=== PATIENT | male | born 1965 | race Caucasian/White ===

== ENCOUNTER 2018-12-16 02:51 | Emergency (ER) | payer OTHER ==
[~2018-12-16] VITALS: Ht 172.7 cm; Wt 102.1 kg
[2018-12-16] MEDS ORDERED: TOPROL XL25 MG PO (03:04)
[2018-12-16] MEDS ORDERED: ESCITALOPRAM OX10 MG PO (03:05)
[2018-12-16 04:35] LABS: ABSOLUTE NEUTROPHILS 3.1 thou/uL (1.4-8.2); BASOPHILS 0.9 % (0.0-2.0); EOSINOPHILS 5.1 % (0.0-3.0); HEMATOCRIT 45.7 % (42.0-52.0); HEMOGLOBIN 15.8 gm/dL (14.0-18.0); LYMPHOCYTES 39.1 % (24.0-44.0); MCH 29.5 pg (26.0-34.0); MCHC 34.6 g/dL (28.0-37.0); MCV 85.2 fL (80.0-100.0); MONOCYTES 8.5 % (1.0-8.0); PLATELET COUNT 220 thou/uL (150-400); POLYS 46.4 % (36.0-66.0); RBC 5.36 mil/uL (4.50-6.00); RDW 12.9 % (10.5-14.5); WBC 6.7 thou/uL (4.0-11.0)
[2018-12-16 04:36] LABS: ANION GAP 10 mmol/L (7-16); BUN 18 mg/dL (7-18); CALCIUM 8.9 mg/dL (8.5-10.1); CHLORIDE 104 mmol/L (98-107); CO2 27 mmol/L (21-32); CREATININE 0.9 mg/dL (0.7-1.3); GLUCOSE 101 mg/dL (74-106); POTASSIUM 3.9 mmol/L (3.5-5.1); SODIUM 141 mmol/L (136-145)
[2018-12-16 04:45] LABS: MAGNESIUM 2.3 mg/dL (1.8-2.4); TROPONIN-I <0.06 ng/mL (<0.06)
[2018-12-16 06:26] VITALS: BP 148/97
--- NOTE | 2018-12-18 22:25 | EKG ---
[address] [place] [address] ELECTROCARDIOGRAM REPORT Name: LAY CHIRINOS Room #: DEP Diogenes#: [id number] ������������������ Admission: 12/16/18 ������������������ Attend Phys: Discharge: 12/16/18 ������������������ Date of : 67 Report #: [id number] ����������������������������������������������������������������� [id number] THIS REPORT FOR: //name// [facility] ED Test Date: 2018-12-16 Test Time: 04:35:28 Pat Name: LAY CHIRINOS Department: Room: Gender: M Digital Pre Press Operator: cooper : 1965 Requested By: Melisa Lockhart Order Number: [id number] MD: Mando Avila Measurements Intervals [place] Rate: 53 P: 7 WI: 165 QRS: -6 QRSD: 111 T: -6 QT: 436 QTc: 410 Interpretive Statements Sinus rhythm Borderline T abnormalities, inferior leads ST elev, probable normal early repol pattern Compared to ECG 12/05/2013 13:36:30 T-wave abnormality now present ST (T wave) deviation now present Electronically Signed On 12-18-2018 22:25:12 CDT by Mando Avila [email or web address] ��������������������������������������������� <ELECTRONICALLY SIGNED> ���������������������������������������� By: Mando Avila MD ��������������������������������������������� 12/18/18 2225 0435 0435 Mando Avila MD /EPI
== END 2018-12-16 06:26 | disposition home or self-care (01) ==
LOC: ER 02:51
PROVIDERS: Emergency Medicine
DX: I10 Essential (primary) hypertension (principal)

== ENCOUNTER 2018-12-27 19:14 | Emergency (ER) | payer OTHER ==
[~2018-12-27] VITALS: Ht 172.7 cm; Wt 102.1 kg
[~2018-12-27 19:14] MED LIST: ESCITALOPRAM OX10 MG PO; TOPROL XL25 MG PO
[2018-12-27 21:30] VITALS: BP 143/87
== END 2018-12-27 21:30 | disposition home or self-care (01) ==
LOC: ER 19:14
DX: I10 Essential (primary) hypertension (principal); F41.9 Anxiety disorder, unspecified

== ENCOUNTER → 2019-05-17 | Outpatient (CLI) | payer OTHER ==
--- NOTE | 2019-05-17 12:03 | EXE ---
[facility] [address] [place] [address] STRESS ECHOCARDIOGRAM Name: TIMOTEODEBBILAY Room #: REG BONNY Shetty#: [id number] Admission: 05/17/19 Attend Phys: Mando Avila Discharge: Date of : 67 Report #: [id number] THIS REPORT FOR: //name// APPROVED REPORT Study performed: 05/17/2019 08:48:07 Exam: Stress Echocardiogram Indication: Chest pain Patient Location: Out-Patient Stress Nurse: Lizbet Appiah RN Room #: Echo lab 2 Status: routine Ht: 5 ft 8 in HR: 74 bpm BP: 122/82 mmHg Rhythm: NSR Medical History Medical History: HTN Allergies: No known drug allergies Cardiac Risk Factors: HTN, FHX of CAD Exercise History: Physically active Procedure The patient underwent an Exercise Stress Test using the Aman Protocol. Blood pressure, heart rate, and EKG were monitored. An Echocardiogram was performed by field radio technician in four stages in quad fashion. At peak stress, four selected images were obtained and placed side by side with resting images for comparison. Stress Test Details Stress Test: Exercise stress testing was performed using a Aman protocol. HR Resting HR: 74 bpm Max Heart Rate (APMHR): 167 bpm Max HR Achieved: 184 bpm Target HR (85% APMHR): 141 bpm % of APMHR: 110 Recovery HR: 91 bpm HR response to stress: Normal HR response to stress BP Resting BP: 122/82 mmHg Max BP: 148/84 mmHg Recovery BP: 122/62 mmHg [facility] [address] [place] [address] STRESS ECHOCARDIOGRAM Name: LAY CHIRINOS Room #: REG [facility]#: [id number] Admission: 05/17/19 Attend Phys: Mando Avila Discharge: Date of : 67 Report #: [id number] BP response to stress: Normal blood pressure response to stress. ECG Resting ECG: Sinus Rhythm Stress ECG: Sinus Tachycardia Arrhythmia: None Recovery ECG: Sinus Rhythm Clinical Reason for Termination: Maximal effort Exercise duration: 10 min 30 sec Highest Stage Achieved: Stage 4: 4.2 mph at 16% grade. Exercise capacity: 13.7 METs Overall Exercise Capacity for Age: Good Stress ECG Conclusion 1. subjectively negative for ischemia 2. electrocardiographically negative for ischemia 3. satisfactory functional capacity Pre-Stress Echo The resting Echocardiogram showed normal left ventricular contractility with an estimated Ejection Fraction of about >55%. The resting echocardiogram demonstrated normal wall motion in all wall segments. Post-Stress Echo The stress Echocardiogram showed normal left ventricular contractility with an estimated Ejection Fraction of about 65-70%. Compared to rest, there were no stress-induced wall motion abnormalities. Conclusion Clinical Response: Non-ischemic Exercise Capacity: saisfsactory Stress ECG Response: Non-ischemic Stress Echo Images: Non-ischemic 1. low risk study Other Information Study Quality: Good [facility] [address] [place] [address] STRESS ECHOCARDIOGRAM Name: LAY CHIRINOS Room #: REG Diogenes#: [id number] Admission: 05/17/19 Attend Phys: Mando Avila Discharge: Date of : 67 Report #: [id number] <Conclusion> 1. low risk study <ELECTRONICALLY SIGNED> By: Zia Todd MD 05/17/193 02 02 Zia Todd MD /INF
== END ==
LOC: CV 08:21
DX: R00.0 Tachycardia, unspecified (principal); I10 Essential (primary) hypertension

== ENCOUNTER → 2019-05-17 | Outpatient (CLI) | payer OTHER | LOC: CAT 08:24 | DX: Z13.6 Encounter for screening for cardiovascular disorders (principal); E78.00 Pure hypercholesterolemia, unspecified; I25.10 Atherosclerotic heart disease of native coronary artery without angina pectoris ==